=== PATIENT | female | born 2000 | race Caucasian/White ===

== ENCOUNTER 2018-06-01 19:28 | Emergency (ER) | payer BC, OTHER ==
[2018-06-01] MEDS ORDERED: NORMAL SALINE 1000 ML 1,000 ML IV ONE (21:24)
--- NOTE | 2018-06-01 21:29 | ER Document Report ---
ED Medical Screen (RME) - General Chief Complaint: Abdominal Pain Stated Complaint: RIGHT ABDOMINAL PAINS Time Seen by Provider: 06/01/18 21:19 Notes: Patient is a 17-year-old female presenting to the emergency department complaining of right periumbilical abdominal pain. Patient states she has had a dull pain for the last 24 hours. Patient denies vomiting, diarrhea, fever, dysuria, vaginal discharge (patient is on her). Patient states she initially thought she was constipated so she started taking MiraLAX. Patient states last bowel movement was 2 days ago. Past medical history: None Medications: control Allergies: None Surgical history: None Patient denies illicit drug use, EtOH use, cigarette smoking. Patient's last menstrual period is currently Physical exam: Abdomen is soft nondistended. No McBurney's point tenderness, no Goldstein sign. Generalized pain upon palpation periumbilical. No CVA tenderness I have greeted and performed a rapid initial assessment of this patient. A comprehensive ED assessment and evaluation of the patient, analysis of test results and completion of the medical decision making process will be conducted by additional ED providers. TRAVEL OUTSIDE OF THE [place] IN LAST 30 DAYS: No Past Medical History - Social History Chew tobacco use (# tins/day): No Frequency of alcohol use: None Drug Abuse: None Renal/ Medical History: Denies: Hx Peritoneal Dialysis Past Surgical History: Reports: Hx Oral Surgery - wisdom teeth Physical Exam - Vital signs Vitals: Temp Pulse Resp BP Pulse Ox 98.6 F 105 H 16 163/75 H 98 06/01/18 19:29 06/01/18 19:29 06/01/18 19:29 06/01/18 19:29 06/01/18 19:29 Course - Vital Signs Vital signs: Temp Pulse Resp BP Pulse Ox 98.6 F 105 H 16 163/75 H 98 06/01/18 19:29 06/01/18 19:29 06/01/18 19:29 06/01/18 19:29 06/01/18 19:29
[2018-06-01 21:50] LABS: ABSOLUTE BASOPHILS # (AUTO) 0.1 10^3/uL (0.0-0.2); ABSOLUTE EOSINOPHILS # (AUTO) 0.1 10^3/uL (0.0-0.6); ABSOLUTE LYMPHOCYTES (AUTO) 2.6 10^3/uL (0.5-4.7); ABSOLUTE MONOCYTES (AUTO) 0.5 10^3/uL (0.1-1.4); ABSOLUTE NEUT (AUTO) 3.1 10^3/uL (1.7-8.2); APPEARANCE,URINE CLEAR; BASOPHILS % (AUTO) 0.9 % (0-2); BILIRUBIN,URINE NEGATIVE (NEGATIVE); COLOR,URINE YELLOW; GLUCOSE, URINE NEGATIVE (NEGATIVE); HEMATOCRIT 39.6 % (36.0-47.0); KETONES,URINE NEGATIVE (NEGATIVE); LEUKOCYTE ESTERASE,URINE NEGATIVE (NEGATIVE); LYMPHOCYTES % (AUTO) 40.8 % (13-45); MEAN CORPUSCULAR HEMOGLOBIN 31.4 pg (27.0-33.4); MEAN CORPUSCULAR HGB CONC 35.3 g/dL (32.0-36.0); MEAN CORPUSCULAR VOLUME 89 fl (80-97); MONOCYTES % (AUTO) 7.4 % (3-13); NITRITE,URINE NEGATIVE (NEGATIVE); PLATELET COUNT 248 10^3/uL (150-450); PROTEIN,URINE NEGATIVE (NEGATIVE); RED BLOOD COUNT 4.45 10^6/uL (3.72-5.28); RED CELL DISTRIBUTION WIDTH 12.9 % (11.5-14.0); SEGMENTED NEUTROPHILS % (AUTO) 49.9 % (42-78); TOTAL CELLS COUNTED % (AUTO) 100 %; URINE SPECIFIC GRAVITY 1.009; WHITE BLOOD COUNT 6.3 10^3/uL (4.0-10.5)
[2018-06-01 22:00] LABS: ALANINE AMINOTRANSFERASE 34 U/L (5-35); ALKALINE PHOSPHATASE 77 U/L (50-135); ANION GAP 16 (5-19); ASPARTATE AMINO TRANSFERASE 28 U/L (5-30); BILIRUBIN,DIRECT 0.1 mg/dL (0.0-0.4); BILIRUBIN,TOTAL 0.7 mg/dL (0.2-1.3); BLOOD UREA NITROGEN 9 mg/dL (7-20); CARBON DIOXIDE 24 mmol/L (22-30); CHLORIDE 103 mmol/L (98-107); GLUCOSE 87 mg/dL (75-110); LIPASE 89.5 U/L (23-300); POTASSIUM 4.3 mmol/L (3.6-5.0); SODIUM 143.1 mmol/L (137-145); TOTAL PROTEIN 8.5 g/dL (6.3-8.2)
[2018-06-01] MEDS ORDERED: KETOROLAC TROMETHAMINE INJ/PF 30 MG/1 ML SDV IV ONE (23:58)
--- NOTE | 2018-06-02 | ER Document Report ---
ED GI/ - General Chief Complaint: Abdominal Pain Stated Complaint: RIGHT ABDOMINAL PAINS Time Seen by Provider: 06/01/18 21:19 Notes: Patient is a 17-year-old female presenting to the emergency department complaining of periumbilical abdominal pain. Patient states she has had a dull pain for the last 24 hours. Patient denies vomiting, diarrhea, fever, dysuria, vaginal discharge (patient is on her period). Patient states she initially thought she was constipated so she started taking MiraLAX yesterday. Patient states last bowel movement was this morning and was "normal" in nature. Past medical history: None Medications: control Allergies: None Surgical history: None Patient denies illicit drug use, EtOH use, cigarette smoking. Patient's last menstrual period is currently TRAVEL OUTSIDE OF THE [place] IN LAST 30 DAYS: No Past Medical History - General Information source: Patient - Social History Smoking Status: Never Smoker Chew tobacco use (# tins/day): No Frequency of alcohol use: None Drug Abuse: None Lives with: Family Family History: Reviewed & Not Pertinent Patient has suicidal ideation: No Patient has homicidal ideation: No Renal/ Medical History: Denies: Hx Peritoneal Dialysis Past Surgical History: Reports: Hx Oral Surgery - wisdom teeth Review of Systems - Review of Systems Constitutional: See HPI EENT: No symptoms reported Cardiovascular: No symptoms reported Respiratory: No symptoms reported Gastrointestinal: See HPI Genitourinary: See HPI Female Genitourinary: See HPI Musculoskeletal: See HPI Skin: No symptoms reported Hematologic/Lymphatic: No symptoms reported Neurological/Psychological: No symptoms reported Physical Exam - Vital signs Vitals: Temp Pulse Resp BP Pulse Ox 98.6 F 105 H 16 163/75 H 98 06/01/18 19:29 06/01/18 19:29 06/01/18 19:29 06/01/18 19:29 06/01/18 19:29 - Notes Notes: GENERAL: Alert, interacts well. No acute distress. HEAD: Normocephalic, atraumatic. EYES: Pupils equal, round, and reactive to light. Extraocular movements intact. ENT: Oral mucosa moist, tongue midline. NECK: Full range of motion. Supple. Trachea midline. LUNGS: Clear to auscultation bilaterally, no wheezes, rales, or rhonchi. No respiratory distress. HEART: Regular rate and rhythm. No murmur ABDOMEN: Soft, Non-distended. Bowel sounds present in all 4 quadrants. Generalized periumbilical abdominal pain, no McBurney's point tenderness, no Goldstein sign. EXTREMITIES: Moves all 4 extremities spontaneously. No edema, normal radial and dorsalis pedis pulses bilaterally. No cyanosis. BACK: no cervical, thoracic, lumbar midline tenderness. No saddle anesthesia, normal distal neurovascular exam. No CVA tenderness bilaterally NEUROLOGICAL: Alert and oriented x3. Normal speech. cranial nerves II through XII grossly intact PSYCH: Normal affect, normal mood. SKIN: Warm, dry, normal turgor. No rashes or lesions noted. Course - Re-evaluation Re-evalutation: 06/01/18 23:57 Upon initial examination patient only had periumbilical abdominal pain. Patient now complains of right lower quadrant pain. HCG is negative will proceed with pain medication and CT imaging. 06/02/18 01:[address] imaging revealed no signs of appendicitis, likely constipation. Discussed this with patient at bedside. Will prescribe MiraLAX twice a day for the next 2 weeks. Close return precautions discussed. - Vital Signs Vital signs: Temp Pulse Resp BP Pulse Ox 98.6 F 105 H 16 163/75 H 98 06/01/18 19:29 06/01/18 19:29 06/01/18 19:29 06/01/18 19:29 06/01/18 19:29 - Laboratory Result Diagrams: 06/01/18 21:36 06/01/18 21:36 Laboratory results interpreted by me: 06/01/18 06/01/18 21:36 21:36 Total Protein 8.5 H Urine Blood MODERATE H Urine Urobilinogen 4.0 H Discharge - Discharge Clinical Impression: Constipation Qualifiers: Constipation type: unspecified constipation type Qualified Code(s): K59.00 - Constipation, unspecified Condition: Stable Disposition: HOME, SELF-CARE Instructions: Abdominal Pain ([facility]), Constipation ([facility]) Additional Instructions: As we discussed your CT images reveal constipation. You should follow-up with your primary care provider in the next 24-48 hours. Please take prescription medications as prescribed. Please return to the emergency room for any other concerning symptoms. Prescriptions: Polyethylene Glycol 3350 [Miralax] 1 cap PO BID #527 powder
--- NOTE | 2018-06-02 00:44 | RADIOLOGY REPORT (SQ) ---
CLINICAL HISTORY: RLQ pain COMPARISON: None. TECHNIQUE: CT ABDOMEN PELVIS WITH IV CONTRAST on 06/01/2018 11:58 PM [employer] This exam was performed according to our departmental dose-optimization program, which includes automated exposure control, adjustment of the mA and/or kV according to patient size and/or use of iterative reconstruction technique. FINDINGS: Lower lungs are clear. Abdomen: The liver is normal in appearance. There is no biliary dilatation. Gallbladder is normal in appearance. The pancreas and spleen are normal in appearance. The adrenal glands and kidneys are unremarkable. Abdominal aorta is normal in course and caliber without aneurysm. There is no free air. There is no retroperitoneal adenopathy. Pelvis: There is moderate amount of stool in the colon. Urinary bladder is unremarkable. There is no free fluid. Uterus is small in appearance. Right ovarian cyst measures 3.6 cm. Appendix is normal. Skeleton: There are no acute osseous findings. No suspicious bony lesions. IMPRESSION: Possible constipation. Normal appendix. Small right ovarian cyst.
[2018-06-02 01:36] VITALS: BP 130/66
== END 2018-06-02 01:36 | disposition home or self-care (01) ==
LOC: ER 19:28
DX: K59.00 Constipation, unspecified (principal); R10.33 Periumbilical pain
CPT/HCPCS: 99284; 96361; 96374; 36415; 83690; 84703; 85025; 80053; 81001; 74177; J1885; J7030